=== PATIENT | male | born 1995 | race Caucasian/White ===

== ENCOUNTER 2019-01-13 00:39 | Emergency (ER) | payer OTHER ==
[2019-01-13] MEDS ORDERED: LIDOCAINE 1% INJ-PF (10 MG/ML) 30 ML SDV INJ ONE ×2 (03:49→06:30)
[2019-01-13] MEDS ORDERED: AMOXICILLIN TRIHYDRATE 500 MG CAPSULE PO ONE ×2 (03:49→06:30)
[2019-01-13] MEDS ORDERED: AMOXICILLIN TR/POT CLAVULANATE 500-125 MG TAB PO ONE ×2 (03:49→06:30)
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
[2019-01-13 07:47] VITALS: BP 133/70
== END 2019-01-13 07:48 | disposition home or self-care (01) ==
LOC: ER 00:39
DX: S01.511A Laceration without foreign body of lip, initial encounter (principal); Y04.0XXA Assault by unarmed brawl or fight, initial encounter
CPT/HCPCS: 99282; J3490